=== PATIENT | female | born 1955 | race Caucasian/White ===

== ENCOUNTER 2017-08-27 19:29 | Emergency (ER) | payer OTHER ==
[~2017-08-27] VITALS: Ht 167.6 cm; Wt 77.1 kg
[2017-08-27] MEDS ORDERED: ZOCOR20 MG (20:37)
[2017-08-27] MEDS ORDERED: LOSARTAN-HCTZ1 EACH (20:37)
[2017-08-27] MEDS ORDERED: METFORMIN HCL500 MG (20:37)
== END 2017-08-27 22:32 | disposition home or self-care (01) ==
LOC: ER 19:29
DX: E11.65 Type 2 diabetes mellitus with hyperglycemia (principal)

== ENCOUNTER 2021-05-15 10:10 | Emergency (ER) | payer OTHER ==
[~2021-05-15] VITALS: Ht 162.6 cm; Wt 80.3 kg
[~2021-05-15 10:10] MED LIST: LOSARTAN-HCTZ1 EACH; METFORMIN HCL500 MG; ZOCOR20 MG
[2021-05-15] MEDS ORDERED: KETO10TA2 PO (13:44)
[2021-05-15] MEDS ORDERED: NORFLEX100MG PO (13:44)
[2021-05-15] MEDS ORDERED: B-122500 MCG SL (13:46)
== END 2021-05-15 13:57 | disposition home or self-care (01) ==
LOC: ER 10:10
DX: M54.50 Low back pain, unspecified (principal); R30.0 Dysuria; M25.551 Pain in right hip

== ENCOUNTER 2023-05-12 12:56 | Inpatient (IN) | payer OTHER ==
[~2023-05-12] VITALS: Ht 152.4 cm; Wt 63.5 kg
[~2023-05-12 12:56] MED LIST changes: +B-122500 MCG SL; +KETO10TA2 PO; +NORFLEX100MG PO
[2023-05-12] MEDS ORDERED: ASPIRIN 325 MG TABLET PO ONE (17:15)
[2023-05-12] MEDS ORDERED: 0.9 % SODIUM CHLORIDE 1,000 ML IV ONE (17:15)
[2023-05-12] MEDS ORDERED: CLOPIDOGREL BISULFATE 75 MG TABLET PO ONE (17:15)
[2023-05-12] MEDS ORDERED: DEXAMETHASONE SODIUM PHOSPHATE 4 MG/ML VIAL IV ONE (17:45)
[2023-05-12 18:04] LABS: HEMATOCRIT 39.3 % (36.0-45.00); HEMOGLOBIN 13.6 g/dL (12.0-15.00); MEAN CELL VOLUME 83.6 fL (80.00-100.00); MEAN CORPUSCULAR HEMOGLOBIN 28.8 pg (27.00-32.0); MEAN CORPUSCULAR HGB CONC 34.5 g/dl (32.0-36.0); PLATELET COUNT 271 K/uL (150-450); RED CELL DISTRIBUTION WIDTH 13.2 % (11.5-14.5)
[2023-05-12 18:20] LABS: INR 0.94; PARTIAL THROMBOPLASTIN TIME 23.9 SECONDS (22.0-34.0); PROTHROMBIN TIME 9.9 SECONDS (9.0-11.5)
[2023-05-12 18:21] LABS: CALCIUM 10.1 mg/dL (8.5-10.1); CREATININE SERUM 1.12 mg/dL (0.55-1.02); GFR 48.38; POTASSIUM 3.89 mEq/L (3.5-5.1)
[2023-05-12 20:35] LABS: PH,URINE 5.5 (5.0-8.0); URINE APPEARANCE Cloudy; URINE BILIRRUBIN Negative (NEGATIVE); URINE BLOOD Negative; URINE COLOR Yellow; URINE GLUCOSE Negative (NEGATIVE); URINE LEUKOCYTE Large; URINE NITRATE Negative; URINE PROTEIN Negative (NEGATIVE); URINE UROBILINOGEN 0.2 E.U./dl
[2023-05-12 20:36] LABS: URINE EPITHELIAL CELLS 57.9 uL (0.0-38.8); URINE RBC 7.4 uL (0.0-20.8); URINE WBC 240.3 uL (0.0-23.2)
[2023-05-12] MEDS ORDERED: INSULIN LISPRO 1,000 UNIT/10 ML UNITS SUBCUTANEO PRN (21:30)
[2023-05-12] MEDS ORDERED: 0.9 % SODIUM CHLORIDE 1,000 ML IV SCH (21:30)
[2023-05-12] MEDS ORDERED: DEXTROSE 50 % IN WATER 0.5 G/ML DISP.SYRIN IV PRN (21:30)
[2023-05-12] MEDS ORDERED: ONDANSETRON HCL 4 MG in 0.9 % SODIUM CHLORIDE 50 ML IV PRN (21:30)
[2023-05-12] MEDS ORDERED: ACETAMINOPHEN 500 MG GEL..CAP PO PRN (21:30)
[2023-05-13 07:07] LABS: CHOL HDL RATIO 3.7 (0-5.0); TSH 0.606 uIU/mL (0.358-3.74)
[2023-05-13] MEDS ORDERED: LOSARTAN/HYDROCHLOROTHIAZIDE 1 UDTAB TABLET PO SCH (09:00)
[2023-05-13] MEDS ORDERED: FAMOTIDINE/PF 20 MG in 0.9 % SODIUM CHLORIDE 8 ML IV PUSH SCH (09:00)
[2023-05-13] MEDS ORDERED: CLOPIDOGREL BISULFATE 75 MG TABLET PO SCH (09:00)
[2023-05-13] MEDS ORDERED: SIMVASTATIN 20 MG TABLET PO SCH (17:00)
[2023-05-13] MEDS ORDERED: ALPRAzolam 0.5 MG TABLET PO SCH (18:28)
[2023-05-13] MEDS ORDERED: SERTRALINE HCL 50 MG TABLET PO SCH (18:28)
[2023-05-13] MEDS ORDERED: DEXTROSE 50 % IN WATER 0.5 G/ML DISP.SYRIN IV PRN (22:00)
[2023-05-13] MEDS ORDERED: INSULIN LISPRO 1,000 UNIT/10 ML UNITS SUBCUTANEO PRN (22:00)
[2023-05-14] MEDS ORDERED: MetFORMIN HCL 500 MG TABLET PO SCH (09:00)
[2023-05-14] MEDS ORDERED: SIMVASTATIN 40 MG TABLET PO SCH (17:00)
== END 2023-05-14 22:18 | disposition home or self-care (01) | DRG 65 ==
LOC: ER 12:57 → SEC-K 21:55 → MEDJ 21:55
PROVIDERS: General Practice; ADMIT Internal Medicine; ATTEND Internal Medicine
PROC: BW28ZZZ Computerized Tomography (CT Scan) of Head (ICD-10-PCS; principal; 2023-05-12)
PROC: BR20ZZZ Computerized Tomography (CT Scan) of Cervical Spine (ICD-10-PCS; 2023-05-12)
PROC: B030ZZZ Magnetic Resonance Imaging (MRI) of Brain (ICD-10-PCS; 2023-05-12)
PROC: B345ZZZ Ultrasonography of Bilateral Common Carotid Arteries (ICD-10-PCS; 2023-05-12)
PROC: B24BZZZ Ultrasonography of Heart with Aorta (ICD-10-PCS; 2023-05-12)
PROC: 4A12X4Z Monitoring of Cardiac Electrical Activity, External Approach (ICD-10-PCS; 2023-05-13)
DX: I63.89 Other cerebral infarction (principal); G45.9 Transient cerebral ischemic attack, unspecified; G81.91 Hemiplegia, unspecified affecting right dominant side; F41.9 Anxiety disorder, unspecified; E11.9 Type 2 diabetes mellitus without complications; Z79.4 Long term (current) use of insulin; E78.5 Hyperlipidemia, unspecified; I11.9 Hypertensive heart disease without heart failure; Z20.822 Contact with and (suspected) exposure to COVID-19; S09.90XA Unspecified injury of head, initial encounter; W13.3XXA Fall through floor, initial encounter; Y93.9 Activity, unspecified; Y92.009 Unspecified place in unspecified non-institutional (private) residence as the place of occurrence of the external cause
CPT/HCPCS: 70551